=== PATIENT | female | born 1980 ===

== ENCOUNTER 2017-08-12 15:54 | Emergency (ER) | payer BC, MEDICAID, OTHER ==
[2017-08-12 16:52] VITALS: BMI 38.0
[2017-08-12 16:54] VITALS: BP 119/77; PULSE 84; RESP 17; TEMP 98.2; O2SAT 98
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
[2017-08-12] MEDS ORDERED: Albuterol-Ipratrop 3 mg / 0.5 (3 ml) UD INH STA (19:11)
--- NOTE | 2017-08-13 10:47 | RAD ---
HISTORY: pain COMPARISON: No prior. FINDINGS: BONES: Alignment maintained. No fracture. DISC SPACES: Normal thoracic and lumbar curvature is identified with no spondylolisthesis. Minimal lumbar spondylosis. Moderate multilevel thoracic spondylosis is appreciated which can be better characterized on CT or MRI. SOFT TISSUES: Normal. OTHER FINDINGS: None. IMPRESSION: Multilevel thoracic spondylosis without definite fracture or spondylolisthesis appreciable. Minimal lumbar spinal spondylosis. Further characterization can be provided by MRI or CT if clinically warranted.
== END 2017-08-12 19:40 | disposition home or self-care (01) ==
LOC: C.ER 15:54
DX: M54.6 Pain in thoracic spine (principal); M54.5 Low back pain

== ENCOUNTER 2018-04-25 12:12 | Emergency (ER) | payer BC, MEDICAID, OTHER ==
[2018-04-25 12:12] VITALS: BMI 31.9
[2018-04-25 13:24] LABS: BASO % 0.7 % (0.0-2.0); EOS # 0.2 K/uL (0.0-0.7); EOS % 3.2 % (0.0-4.0); HEMOGLOBIN 12.6 g/dL (11.0-16.0); LYMPH % 28.5 % (20.0-40.0); MEAN CELL VOLUME 88.1 fL (81.0-99.0); MEAN CORPUSCULAR HEMOGLOBIN 29.6 pg (27.0-31.0); MEAN CORPUSCULAR HGB CONC 33.5 g/dL (33.0-37.0); MEAN PLATELET VOLUME 8.3 fL (7.2-11.7); MONO # 0.4 K/uL (0.0-0.8); MONO % 6.2 % (0.0-10.0); NEUT # 4.3 K/uL (1.8-7.0); NEUT % 61.4 % (50.0-75.0); RBC 4.27 Mil/uL (3.80-5.20); RED CELL DISTRIBUTION WIDTH 14.9 % (11.5-14.5)
[2018-04-25 13:59] LABS: ALB/GLOB RATIO 1.2 (1.0-2.1); ALBUMIN 3.6 g/dL (3.5-5.0); ALT/SGPT 19 U/L (9-52); AST/SGOT 11 U/L (14-36); BLOOD UREA NITROGEN 12 mg/dL (7-17); CALCIUM 8.7 mg/dl (8.6-10.4); GFR AFRICAN-AMERICAN > 60; GFR NON-AFRICAN AMERICAN > 60; LIPASE 73 U/L (23-300)
[2018-04-25 14:03] LABS: SQUAMOUS EPITHIAL 6 /hpf (0-5); URINE BACTERIA OCC (<OCC); URINE BILIRUBIN NEGATIVE (NEGATIVE); URINE BLOOD 3+ (NEGATIVE); URINE CLARITY Hazy (Clear); URINE COLOR Amber (YELLOW); URINE GLUCOSE (UA) NORMAL (Normal); URINE LEUKOCYTE ESTERASE NEG Leu/uL (Negative); URINE PROTEIN 2+ mg/dL (NEGATIVE); URINE UROBILINOGEN NORMAL mg/dL (0.2-1.0)
[2018-04-25 14:04] LABS: HCG,QUALITATIVE URINE NEGATIVE (NEGATIVE)
--- NOTE | 2018-04-25 14:14 | C.PDOC ---
History Of Present Illness 38 y/o female, with Hx of gastritis, pancreatitis, and constipation, c/o abdominal pain that began yesterday. She notes that her last BM was earlier today and she saw blood in stool which prompted ED visit. Notes h/o similar symptoms in the past secondary to constipation. The patient reports having a colonoscopy earlier this year with Dr. Alberto. Reports her diet consists on crackers and fast food today. She is currently on her period. The patient denies taking any pain medication at home. She also denies any fever, back pain , nausea, vomiting, diarrhea or dysuria. Time Seen by Provider: 04/25/18 12:24 Chief Complaint (Nursing): Abdominal Pain History Per: Patient History/Exam Limitations: no limitations Onset/Duration Of Symptoms: Hrs Current Symptoms Are (Timing): Still Present Location Of Pain/Discomfort: RLQ, LLQ Quality Of Discomfort: "Pain" Associated Symptoms: Constipation. denies: Nausea, Vomiting, Diarrhea Last Bowel Movement: Today Recent travel outside of the [place]: No Past Medical History Reviewed: Historical Data, Nursing Documentation, Vital Signs Vital Signs: Last Vital Signs Temp 98 F 04/25/18 18:10 Pulse 86 04/25/18 18:10 Resp 18 04/25/18 18:10 BP 136/74 04/25/18 18:10 Pulse Ox 98 04/25/18 18:22 - Medical History PMH: Anxiety, Arthritis, Asthma, COPD, Depression, Fibromyalgia, Gastritis, HTN , Hypercholesterolemia, Post Traumatic Stress Disorder Denies: Diabetes, Hepatitis, HIV, Chronic Kidney Disease, Seizures, Sexually Transmitted Disease Surgical History: Endoscopy, - [facility] Procedures ESOPHAGOGASTRODUODENOSCOPY [EGD] W/CLOSED BIOPSY (01/18/14) Family History: States: Unknown Family Hx - Social History Hx Tobacco Use: Yes Hx Alcohol Use: No Hx Substance Use: No (DENIES) - Immunization History Hx Tetanus Toxoid Vaccination: No Hx Influenza Vaccination: No Hx Pneumococcal Vaccination: No Review Of Systems Except As Marked, All Systems Reviewed And Found Negative. Constitutional: Negative for: Fever Gastrointestinal: Positive for: Abdominal Pain, Constipation. Negative for: Nausea, Vomiting, Diarrhea Genitourinary: Negative for: Dysuria Physical Exam - Physical Exam Appears: Well, Non-toxic, No Acute Distress Skin: Normal Color, Warm, Dry Head: Atraumatic, Normacephalic Eye(s): bilateral: Normal Inspection, EOMI Nose: Normal Oral Mucosa: Moist Neck: Normal ROM, Supple Chest: Symmetrical Cardiovascular: Rhythm Regular Respiratory: Normal Breath Sounds, No Accessory Muscle Use, No Rales, No Rhonchi , No Wheezing Gastrointestinal/Abdominal: Soft, Tenderness (to b/l lower quadrants) Back: No CVA Tenderness, No Vertebral Tenderness Extremity: Normal ROM Extremity: Bilateral: Atraumatic, Normal Color And Temperature, Normal ROM Neurological/Psych: Oriented x3, Normal Speech, Other (no focal deficits) ED Course And Treatment - Laboratory Results Result Diagrams: 04/25/18 13:16 04/25/18 13:16 O2 Sat by Pulse Oximetry: 98 (RA) Pulse Ox Interpretation: Normal - Radiology CXR: Interpreted by Me (constipation with no obstruction), Viewed By Me - CT Scan/US abdomen/Pelvis Other Rad Studies (CT/US): Read By Radiologist, Radiology Report Reviewed CT/US Interpretation: FINDINGS: LOWER THORAX: Unremarkable. LIVER: Unremarkable. No gross lesion or ductal dilatation. GALLBLADDER AND BILE DUCTS : Unremarkable. PANCREAS: There is well defined low-attenuation cystic lesion at the junction of the pancreatic body and tail measures 4 centimeter in the AP diameter and 2.6 centimeter in the transverse diameter. The differential consideration includes pancreatic cystic neoplasm such as mucinous cystic neoplasm versus pseudocyst. There is also adjacent sub centimeter low- attenuation lesion at the pancreatic tail measures 0.7 centimeter. The main pancreatic duct is not dilated. No evidence of acute pancreatitis. SPLEEN: The spleen is prominent in size measures up to 12.5 centimeter in the largest AP diameter. ADRENALS: Unremarkable. No mass. KIDNEYS AND URETERS: Unremarkable. No hydronephrosis. No solid mass. VASCULATURE: Unremarkable. No aortic aneurysm. BOWEL: Unremarkable. No obstruction. No gross mural thickening. APPENDIX: Normal appendix. PERITONEUM: Unremarkable. No free fluid. No free air. LYMPH NODES: Unremarkable. No enlarged lymph nodes. BLADDER: Unremarkable. REPRODUCTIVE: The uterus slightly heterogeneous prominent in size. BONES: No acute fracture. OTHER FINDINGS: None. IMPRESSION: No evidence of cholecystitis pancreatitis or appendicitis. 4 centimeter low-attenuation well defined lesion at the junction of the pancreatic body and tail may represent pancreatic cystic neoplasm versus less likely pseudo cyst. Further evaluation is recommended. Progress Note: LAbs and XR evaluated. XR shows constipation. Citrate of Mag 300ml PO, Fleet Enema 135 ml given. On re-evaluation, pt had small BM but pain persists. CT ordered. Upon reevaluation, patient is resting comfortably, abdomen remains soft, and patient is requesting food. Afebrile. I discussed CT results with patient. She notes a history of pancreatitis and recalls a small cyst in pancreas found last year. She was given copy of CT and advised to follow up with PMD in 1-2 days. Results were faxed to Dr. Ca ([phone]) Disposition - Disposition Referrals: Dana Ca MD [Staff Provider] - Jennifer Alberto [Staff Provider] - Disposition: HOME/ ROUTINE Disposition Time: 18:02 Condition: STABLE Additional Instructions: Follow up with your doctor in 1-2 days. Show them your CT results. Return to ER If symptoms persist or worsen. Prescriptions: Nitrofurantoin Macrocrystals [Macrobid] 1 cap PO BID #14 cap Polyethylene Glycol 3350 [Miralax] 17 gm PO DAILY #85 gm Instructions: Constipation, Adult (DC) Forms: [facility] (Bulgarian), Work Excuse - Clinical Impression Clinical Impression: Abdominal pain, Constipation, UTI (urinary tract infection) - PA / ASSOCIATE DATA SCIENTIST / Resident Statement MD/DO has reviewed & agrees with the documentation as recorded. - Scribe Statement The provider has reviewed the documentation as recorded by the Scribe (Amisha Carpio) All medical record entries made by the Scribe were at my direction and personally dictated by me. I have reviewed the chart and agree that the record accurately reflects my personal performance of the history, physical exam, medical decision making, and the department course for this patient. I have also personally directed, reviewed, and agree with the discharge instructions and disposition.
--- NOTE | 2018-04-25 14:30 | RAD ---
Date of service: 04/25/2018 PROCEDURE: Radiographs of the chest and abdomen (obstructive series) HISTORY: Abdominal pain COMPARISON: No prior. TECHNIQUE: AP radiograph of the chest, with upright and supine radiographs of the abdomen. FINDINGS: CHEST: Lungs: Clear. Cardiovascular: Normal size heart. No pulmonary vascular congestion. Pleura: No pleural fluid. No pneumothorax. Other findings: None. ABDOMEN AND PELVIS: Bowel: Constipation without fecal impaction or obstruction. Free air: None. Bones: Unremarkable. Other findings: None. IMPRESSION: Constipation without obstruction. No significant findings in the thorax.
[2018-04-25] MEDS ORDERED: Magnesium Citrate Oral SOL (300 ml) PO ONE (14:40)
[2018-04-25] MEDS ORDERED: Magnesium Citrate Oral SOL (300 ml) ONE (14:57)
[2018-04-25] MEDS ORDERED: Morphine 4 MG/ML VIAL ONE (15:31)
[2018-04-25] MEDS ORDERED: Iodixanol 320 MG/ML 100 ML BOTTLE IV ONE (15:57)
--- NOTE | 2018-04-25 17:46 | CT ---
Date of service: 04/25/2018 PROCEDURE: CT Abdomen and Pelvis with contrast HISTORY: pain COMPARISON: None. TECHNIQUE: Contrast dose: 100 mL Visipaque 320. Axial and reformatted coronal and sagittal CT images of the abdomen and pelvis were obtained after IV contrast administration. Radiation dose: Total exam DLP = 1215.88 mGy-cm. This CT exam was performed using one or more of the following dose reduction techniques: Automated exposure control, adjustment of the mA and/or kV according to patient size, and/or use of iterative reconstruction technique. FINDINGS: LOWER THORAX: Unremarkable. LIVER: Unremarkable. No gross lesion or ductal dilatation. GALLBLADDER AND BILE DUCTS: Unremarkable. PANCREAS: There is well defined low-attenuation cystic lesion at the junction of the pancreatic body and tail measures 4 centimeter in the AP diameter and 2.6 centimeter in the transverse diameter. The differential consideration includes pancreatic cystic neoplasm such as mucinous cystic neoplasm versus pseudocyst. There is also adjacent sub centimeter low-attenuation lesion at the pancreatic tail measures 0.7 centimeter. The main pancreatic duct is not dilated. No evidence of acute pancreatitis SPLEEN: The spleen is prominent in size measures up to 12.5 centimeter in the largest AP diameter. ADRENALS: Unremarkable. No mass. KIDNEYS AND URETERS: Unremarkable. No hydronephrosis. No solid mass. VASCULATURE: Unremarkable. No aortic aneurysm. BOWEL: Unremarkable. No obstruction. No gross mural thickening. APPENDIX: Normal appendix. PERITONEUM: Unremarkable. No free fluid. No free air. LYMPH NODES: Unremarkable. No enlarged lymph nodes. BLADDER: Unremarkable. REPRODUCTIVE: The uterus slightly heterogeneous prominent in size. BONES: No acute fracture. OTHER FINDINGS: None. IMPRESSION: No evidence of cholecystitis pancreatitis or appendicitis. 4 centimeter low-attenuation well defined lesion at the junction of the pancreatic body and tail may represent pancreatic cystic neoplasm versus less likely pseudo cyst. Further evaluation is recommended.
[2018-04-25 18:05] VITALS: O2SAT 98
[2018-04-25 18:11] VITALS: BP 136/74; PULSE 86; RESP 18; TEMP 98
== END 2018-04-25 18:11 | disposition home or self-care (01) ==
LOC: C.ER 12:12
DX: K59.00 Constipation, unspecified (principal); N39.0 Urinary tract infection, site not specified; R10.9 Unspecified abdominal pain; E78.00 Pure hypercholesterolemia, unspecified; I10 Essential (primary) hypertension; J44.9 Chronic obstructive pulmonary disease, unspecified; M79.7 Fibromyalgia; Z72.0 Tobacco use
CPT/HCPCS: 74022; 74177; 80053; 81001; 83690; 84703; 85025; 96374; 96375; 99285; C9113; G0328; J1885; J2270; Q9967